=== PATIENT | male | born 1980 | race Native Hawaiian/Other Pacific Islander ===

== ENCOUNTER 2022-05-21 12:26 | Emergency (ER) | payer OTHER ==
[~2022-05-21] VITALS: Ht 182.9 cm; Wt 79.4 kg
[2022-05-21 12:26] VITALS: TEMP 98.9
[2022-05-21 13:03] LABS: PLATELET COUNT 325 K/uL (142-355)
[2022-05-21 13:09] LABS: POTASSIUM 3.3 mmol/L (3.6-5.2)
[2022-05-21 15:02] VITALS: BP 146/81
== END 2022-05-21 15:10 ==
LOC: ED 12:26
PROVIDERS: Emergency Medicine Emergency Medical Services
DX: G40.909 Epilepsy, unspecified, not intractable, without status epilepticus (principal); Z91.14 Patient's other noncompliance with medication regimen
CPT/HCPCS: 36600; 80053; 80307; 81002; 82805; 83735; 84484; 85027; 96360; 96361; 96365; 99284; J1953